=== PATIENT | male | born 1965 | race Caucasian/White ===

== ENCOUNTER 2022-05-20 10:55 | Outpatient (AMB) | payer OTHER, SELFPAY ==
--- NOTE | 2022-05-20 11:30 | A.OFFPC_ITS ---
Vital Signs 05/20/22 11:46 Height 5 ft 10 in Weight 204 lb BMI 29.2 BP 100/80 Blood Pressure Location Lt brachial Position Sitting Pulse 64 Pulse Source Pulse Oximeter Pulse Oximetry (%) 97 Oxygen Delivery Method Room Air Intake Visit Reasons: Requesting PE Intake Note: Pt is here today as a New Patient to est care/ PE Allergies No Known Allergies Allergy (Verified 05/20/22 12:06) Medication List - Last Reconciled 05/20/22 by Bessy Salazar MD No Known Home Meds Tobacco use date assessed: 05/20/22 [facility] Medical History (Updated 05/20/22 @ 12:32 by Bessy Salazar MD) Hx of herpes zoster virus History of inguinal hernia Hx of chlamydia infection History of alcohol abuse Hx of melanoma of skin Diverticulosis Dyslipidemia Surgical History (Updated 05/20/22 @ 12:27 by Bessy Salazar MD) Hx of melanoma excision Family History (Updated 05/20/22 @ 12:30 by Bessy Salazar MD) Brother Lymphoma Mother Breast cancer Arteriosclerotic heart disease (ASHD) Hyperlipidemia Diabetes mellitus Father Diabetes mellitus Social History (Updated 05/20/22 @ 12:32 by Bessy Salazar MD) Housing: House Patient Tobacco Use Status: Never used Tobacco e-Cigarette/Vaping Use: Never Used service: No (previously in the [employer]) Current occupational status: employed Current occupation: plumbing Cognitive needs: No Hearing needs: No Vision needs: Yes Questionnaire PHQ-9 Over the last 2 weeks, how often have you been bothered by any of the following problems? 1. Little interest or pleasure in doing things: not at all 2. Feeling down, depressed, or hopeless: not at all 3. Trouble falling or staying asleep, or sleeping too much: not at all 4. Feeling tired or having little energy: not at all 5. Poor appetite or overeating: not at all 6. Feeling bad about yourself - or that you are a failure or have let yourself or your family down: not at all 7. Trouble concentrating on things, such as reading the newspaper or watching television: not at all 8. Moving or speaking so slowly that other people could have noticed. Or the opposite - being so fidgety or restless that you have been moving around a lot more than usual: not at all 9. Thoughts that you would be better off or of hurting yourself in some way: not at all Total score: 0 Source: Developed by Drs. Tobias Roy, Shellie Ye, José Young and colleagues, with an educational pedro luis from [employer]. Thrive Questionnaire Declines Thrive assessment: No Date Thrive assessed: 05/20/22 I am a: Patient What is your living situation today?: I have a steady place to live Within the past 12 months, did the food you bought not last and you didn't have the money to get more?: Never true Within the past 12 months, did you worry whether your food would run out before you got money to buy more?: Never true Do you have trouble paying for medicines?: No Do you have trouble getting transportation to medical appointments?: No Do you have trouble paying your heating and electricity bill?: No Do you have trouble taking care of your child, family member or friend?: No Do you have trouble with day-to-day activities such as bathing, preparing meals, shopping, managing finances, etc.?: No Are you currently unemployed and looking for a job?: No Are you interested in more education?: No AUDIT C Alcohol Use Questionnaire (AUDIT-C) 1. How often do you have a drink containing alcohol?: Never Total Score: 0 ROBE-7 AMB Questionnaire ROBE-7 Date ROBE - 7 assessed: 05/20/22 Feeling nervous, anxious, or on edge: 0 = Not at all Not being able to stop or control worryin = Not at all Worrying too much about different things: 0 = Not at all Trouble relaxin = Not at all Being so restless that it is hard to sit still: 0 = Not at all Becoming easily annoyed or irritable: 1 = Several days Feeling afraid as if something awful might happen: 0 = Not at all Total ROBE-7 score (0-4 normal; 5-9 mild; 10-14 moderate; 15-21 severe): 1 Source: Developed by Drs. Tobias Roy, Shellie Ye, José Young and colleagues, with an educational pedro luis from [employer]. Physical exam (Primary Care) Vital Signs: Last Vital Signs Pulse 64 05/20/22 11:46 BP 100/80 05/20/22 11:46 Pulse Ox 97 05/20/22 11:46 Oxygen Delivery Method Room Air 05/20/22 11:46 BMI result Body Mass Index 29.2 Tobacco/Smoking Status: Tobacco use Status Tobacco use date assessed 05/20/22 05/20/22 11:52 Patient Tobacco Use Status Never used Tobacco 05/20/22 11:52 e-Cigarette/Vaping Use Never Used 05/20/22 11:52 PHQ-9: PHQ-9 Score PHQ-9: Total score 0 05/20/22 12:32 Thrive Assessment: Date of Thrive Assessment Date Thrive assessed 05/20/22 05/20/22 11:52 Immunizations Boostrix Tdap 2.5 Lf unit-8 mcg-5 Lf/0.5 mL intramuscular syringe Performing Provider: Bessy Salazar MD Performing Location: [facility] Administered by: LIVE Enriquez on 05/20/22 12:27 Dose Route Admin Location Dispensed Lot Number Expiration Date NDC [employer] Manufact[employer] 0.5 mL IM Left Deltoid 0.5 mL [id number] 03/05/24 60240-056-41 [email or web address] 2 Total Dispensed Waste 0.5 mL 0 % VIS Given Date VIS Provided VIS Publication Date 05/20/22 Single Vaccine 20 Eligibility Eligibility Date Funding Source Not [facility] Eligible 05/20/22 Private Coding Level of Care Code Admin Sign Off/No Billing Diagnoses Dyslipidemia E78.5 Adult general medical exam Z00.00 Prostate cancer screening Z12.5
[2022-05-20 11:46] VITALS: BP 100/80; PULSE 64; O2SAT 97; BMI 29.2
== END 2022-05-20 12:27 | disposition home or self-care (01) ==
LOC: HO.HMGC 10:55
PROVIDERS: PCP Internal Medicine; Visit Provider Internal Medicine
DX: E78.5 Hyperlipidemia, unspecified (principal); Z00.00 Encounter for general adult medical examination without abnormal findings; Z12.5 Encounter for screening for malignant neoplasm of prostate
CPT/HCPCS: 99499

== ENCOUNTER 2022-05-28 07:37 | Outpatient (REF) | payer OTHER, SELFPAY ==
[2022-05-28 12:15] LABS: Alanine Aminotransferase 35 U/L (0-40); Anion Gap 12 (12-20); Aspartate Amino Transferase 38 U/L (5-37); Blood Urea Nitrogen 14 mg/dL (9-16); Calcium 10.2 mg/dL (8.4-10.2); Carbon Dioxide 31 mmol/L (22-29); Chloride 103 mmol/L (96-108); Cholesterol 236 mg/dL; Estimated Glomerular Filt Rate > 60; Glucose Fasting 107 mg/dL (60-99); HDL Cholesterol 40 mg/dL; LDL Cholesterol Calculated 175 mg/dl; PSA,Total (Free>4and<10) 0.62 ng/mL (0.00-4.00); Potassium 4.2 mmol/L (3.3-5.1); Sodium 142 mmol/L (135-145); Triglycerides 109 mg/dL; Vitamin D 25-OH Total 32.3 ng/mL (>30)
== END 2022-05-28 07:38 | disposition home or self-care (01) ==
LOC: HO.HMGCLDS 07:37
PROVIDERS: PCP Internal Medicine; Visit Provider Internal Medicine
DX: Z00.00 Encounter for general adult medical examination without abnormal findings (principal); E78.5 Hyperlipidemia, unspecified; Z12.5 Encounter for screening for malignant neoplasm of prostate
CPT/HCPCS: 36415; 80048; 80061; 82306; 84153; 84450; 84460